=== PATIENT | female | born 2000 | race African-American/Black ===

== ENCOUNTER 2020-06-04 09:58 | Emergency (ER) | payer SELFPAY ==
[2020-06-04 10:39] LABS: Bilirubin Negative (Negative); Blood, Urine 2+ (Negative); Clarity Turbid (Clear); Glucose, Urine (Dipstick) Normal (Negative); Ketone, Urine Negative (Negative); Leukocyte 500 Leu/uL (Negative); Nitrite Negative (Negative); Protein, Urine (Dipstick) 50 mg/dL (Neg-Trace); Specific Gravity, Urine 1.026 (1.002-1.036); Urobilinogen Normal mg/dL (Less than 2)
[2020-06-04 10:41] LABS: Pregnancy Test - Urine (BHCG) Negative (Negative); Pregu Control Background? CLEAR/WHITE (CLR/WHITE); Pregu Control Bar Appear? YES (CONTROL BAR); Specific Gravity 1.026 (1.002-1.036)
[2020-06-04 10:55] LABS: Bacteria/HPF 3+ HPF (None Seen); Squamous Epithelial 0-3 HPF (0-3); WBC/HPF Greater Than 50 HPF (0-3)
== END 2020-06-04 11:27 | disposition home or self-care (01) ==
LOC: ERS 09:58
DX: N30.00 Acute cystitis without hematuria (principal)
CPT/HCPCS: 81003; 81015; 81025; 87077; 87086; 87186; 99283

== ENCOUNTER 2020-06-29 07:13 | Emergency (ER) | payer SELFPAY ==
[2020-06-29] MEDS ORDERED: Fluorescein Opthalmic Strip ONE (07:22)
[2020-06-29] MEDS ORDERED: Proparacaine 0.5% Opth 15 ML BOT ONE (07:22)
[2020-06-29] MEDS ORDERED: Erythromycin Base 0.5% Oint 1 GM TUBE ONE (07:23)
== END 2020-06-29 08:01 | disposition home or self-care (01) ==
LOC: ERS 07:13
DX: H10.11 Acute atopic conjunctivitis, right eye (principal)
CPT/HCPCS: 99283